=== PATIENT | male | born 1935 | race Caucasian/White ===

== ENCOUNTER → 2016-05-28 | Outpatient (CLI) | payer MEDICARE, OTHER ==
[~2016-05-28] MED LIST: AC325T PO; ALBU8CC IH; ASPI-345 PO; CARV6.25 PO; CEFD300C PO; ESCI10TA PO; LEVO25TA5 PO; MULT-1034 PO; NF-ESOM40C PO; NITR100C3 PO; OMEP40CA36 PO; PRED20TA PO; PRIM250T PO; SCR1T1 PO; SIMV20TA PO; SULF-228 PO; WARF5TAB6 PO; WARF6TAB PO
== END ==
LOC: LAB 09:00
PROVIDERS: ATTEND Family Medicine
DX: I48.91 Unspecified atrial fibrillation (principal)
CPT/HCPCS: 36415; 85610

== ENCOUNTER → 2016-06-12 | Outpatient (CLI) | payer MEDICARE, OTHER | LOC: RAD 11:41 | PROVIDERS: ATTEND Family Medicine | DX: R06.02 Shortness of breath (principal); Z95.1 Presence of aortocoronary bypass graft | CPT/HCPCS: 71020 ==

== ENCOUNTER 2016-08-05 16:29 | Emergency (ER) | payer MEDICARE, OTHER ==
[~2016-08-05] VITALS: Ht 198.1 cm; Wt 169.0 kg
[2016-08-05] MEDS ORDERED: BACITRACIN OINTMENT 0.9 GM PACKET TOP ONE (17:00)
[2016-08-05 17:30] LABS: BASOPHILS % (AUTO) 1 % (0-2); EOSINOPHILS # (AUTO) 0.1 10^3uL; EOSINOPHILS % (AUTO) 2 % (0-4); LYMPHOCYTES # (AUTO) 0.8 X10^3; MEAN CORPUSCULAR HEMOGLOBIN 30.6 PG (26.0-34.0); MEAN CORPUSCULAR HGB CONC 32.8 g/dL (31.0-37.0); MEAN CORPUSCULAR VOLUME 93 FL (80-100); MEAN PLATELET VOLUME 10.1 FL (6.0-9.5); MONOCYTES # (AUTO) 0.5 X10^3; MONOCYTES % (AUTO) 12 % (3-11); NEUTROPHILS # (AUTO) 2.8 X10^3; NEUTROPHILS % (AUTO) 66 % (51-67); PLATELET COUNT 133 10^3uL (150-450)
[2016-08-05 17:39] LABS: ALBUMIN 3.6 g/dL (3.4-5.0); ANION GAP 11.5 MEQ/L (3-15); CALCULATED IONIZED CALCIUM 3.9 mg/dL (3.8-4.6); TOTAL PROTEIN 6.5 g/dL (6.4-8.5)
--- NOTE | 2016-08-05 17:59 | NUR ---
PT DENIES URGE TO VOID. STATES HE JUST FELL & HE DOESN'T FEEL HE HAS A UTI THAT MIGHT HAVE CAUSED HIS FALL. "I JUST TRIPPED". CL
--- NOTE | 2016-08-05 18:27 | NUR ---
PT CONT TO DENY URGE TO VOID STATING HE SIMPLY TRIPPED & DOES NOT NEED A UA. DR LAWTON NOTIFIED & ENTERS PT RM TO DISCUSS CARE W/PT. PT STABLE ON FEET WHEN HE STANDS, DENIES ANY DIZZINESS OR VISUAL PROBLEMS DECLINING A WHEELCHAIR FOR D/C. CL
[2016-08-05 20:30] VITALS: BP 137/89
== END 2016-08-05 18:47 | disposition home or self-care (01) ==
LOC: ED 16:31
DX: S01.01XA Laceration without foreign body of scalp, initial encounter (principal); S00.01XA Abrasion of scalp, initial encounter; S80.212A Abrasion, left knee, initial encounter; S80.211A Abrasion, right knee, initial encounter; S50.311A Abrasion of right elbow, initial encounter; S63.612A Unspecified sprain of right middle finger, initial encounter; W01.198A Fall on same level from slipping, tripping and stumbling with subsequent striking against other object, initial encounter; Y92.009 Unspecified place in unspecified non-institutional (private) residence as the place of occurrence of the external cause; Z79.01 Long term (current) use of anticoagulants
CPT/HCPCS: 36415; 70450; 73140; 80053; 85025; 85610; 85730; 93005; 99283; A9270; 93010; 99285

== ENCOUNTER → 2016-08-14 | Outpatient (CLI) | payer MEDICARE, OTHER ==
--- NOTE | 2016-08-14 13:58 | Diagnostic Imaging Report ---
INDICATION: Pneumonia. COMPARISON: 06/12/2016. FINDINGS: The cardiomegaly is unchanged in magnitude and configuration. The pulmonary venous structures are not grossly over dilated on followup. There is some basilar opacity partially obscuring the left hemidiaphragm posteriorly on the lateral view. Pneumonia is suspected. IMPRESSION: Cardiomegaly is redemonstrated. No overt failure pattern. Left lower lobe infiltrate, best seen on the lateral view posteriorly, suggests pneumonia. Dictated by: Dictated on workstation # [id number]
== END ==
LOC: RAD 11:24
PROVIDERS: ATTEND Family Medicine
DX: J45.20 Mild intermittent asthma, uncomplicated (principal); R06.02 Shortness of breath; I51.7 Cardiomegaly
CPT/HCPCS: 71020

== ENCOUNTER 2016-08-17 12:37 | Emergency (ER) | payer MEDICARE, OTHER ==
[~2016-08-17] VITALS: Ht 198.1 cm; Wt 372.0 kg
--- OUTSIDE RECORDS SUMMARY | 2016-08-17 12:43 | XMS REPORT | Continuity of Care Document ---
Author Author [facility] Address Unknown Phone Unavailable Care Team Providers Care Stem Setter Name Role Phone Yonathan Herring MD PCP [phone] Insurance Providers Payer Name Policy Number Subscriber Name Relationship Medicare A And B [id number] Beny Peterson 18 Self / Same As Patient Other1 [id number] Danette Peterson 18 Self / Same As Patient Advance Directives Directive Response Recorded Date/Time Advanced Directives Yes 08/05/16 4:35pm Type Durable Power of Bar Tacker Sewing Machine 08/05/16 4:35pm Type Durable Power of Bar Tacker Sewing Machine 08/05/16 4:35pm Other will ask family 08/05/16 4:35pm Chief Complaint and Reason for Visit Chief Complaint Laceration Reason for Visit Skin tear Sprain of middle finger Problems Active Problems Medical Problem Onset Date Status Abdominal pain 03/16/2012 Acute Asthma Unknown Acute Atrial fibrillation with rapid ventricular response Unknown Acute CAP (community acquired pneumonia) Unknown Acute COPD exacerbation Unknown Acute Injury of lower extremity Unknown Acute Pneumonia ~05/04/2016 Acute Skin tear 08/05/2016 Acute Sprain of middle finger 08/05/2016 Acute Medications Current Home Medications Medication Dose Units Route Directions Days/Qty Instructions Start Date Carvedilol 6.25 Mg 6.25 Mg ORAL Twice A Day With Meals 03/18/12 Simvastatin 20 Mg 20 Mg ORAL Bedtime 03/18/12 Warfarin Sodium 5 Mg 5 Mg ORAL Bedtime 11/05/15 Sucralfate (Carafate) 1 Gm 1 Gm ORAL Three Times A Day 11/05/15 Primidone 250 Mg 250 Mg ORAL Twice A Day 11/05/15 Omeprazole 40 Mg 40 Mg ORAL Daily 11/05/15 Levothyroxine Sodium 25 Mcg 25 Mcg ORAL Daily 11/05/15 Escitalopram Oxalate 10 Mg 10 Mg ORAL Daily 11/05/15 Mu-Vits-Min Th/Lycopene/Lutein 1 Each 1 Tab ORAL Daily 05/05/16 Albuterol Sulfate 90 Mcg/1 Puff 2 Puff RESPIRATORY (INHALATION) Every 4HRS as needed for Shortness Of Breath 1 05/07/16 Acetaminophen (Tylenol) 325 Mg 650 Mg ORAL Every 6 Hours as needed for Pain 0 05/07/16 Past Home Medications Medication Directions Ordered Status Aspirin 81 Mg Tablet, 81 Mg Oral Daily 03/18/12 Discontinued Esomeprazole Magnesium 40 Mg Capsule.dr, 40 Mg Oral As Directed 03/18/12 Discontinued Warfarin Sodium 6 Mg Tablet, 6 Mg Oral As Directed 03/18/12 Discontinued Trimethoprim/Sulfamethoxazole 1 Ea Tablet, 1 Ea Oral Twice A Day 03/22/12 Discontinued Nitrofurantoin/Nitrofuran Mac 100 Mg Capsule, 100 Mg Oral Twice A Day Discontinued Cefdinir (Omnicef) 300 Mg Capsule, 300 Mg Oral Twice A Day 05/07/16 Discontinued Prednisone 20 Mg Tablet, 60 Mg Oral Daily 05/07/16 Discontinued Social History Social History Problem Response Recorded Date/Time Onset Date Status Exposure to occupational hazards No 05/04/2016 6:22pm Query Response Start Date Stop Date Smoking Status Former smoker Hospital Discharge Instructions No hospital discharge instructions. Plan of Care Discharge Date 08/05/16 6:47pm Disposition 01 HOME OR SELF-CARE Condition at Discharge Stable Instructions/Education Provided Wound Care (DC) Finger Sprain (DC) Prescriptions See Medication Section Referrals Yonathan Herring MD - Additional Instructions/Education ED [facility]N if any worse. Follow up with your doctor as needed. Some of your test results may not be complete prior to your leaving the Emergency Department. The Emergency Department is not authorized to give test results over the phone. Please contact the doctor's office listed in this packet of information for your final results. Follow up with your primary care physician or return to the Emergency Department for worsening or worrisome symptoms. * Emergency Department phone number: [phone], x [phone]* MEDICAL RECORD If you need copies of your X-rays, call [phone]. If you need copies of your medical record, including lab results, a signed authorization for release of records will be required. A telephone call for release of Health Information is not allowed. BILLING Billing can sometimes be confusing and frustrating. To help avoid confusion in the future, please take a moment to acquaint yourself with the billing parties for services. SERVICE BILLING DEMO[employer]AT Emergency Room Services [facility] Physician Services [facility] X-rays [facility] Patients will receive bills for services from the appropriate provider. If you have any questions about your [facility] bill, our staff will be happy to assist you. Please call [phone], and ask for the billing department. THANK YOU for choosing [facility] as your emergency care provider! Care Plan and Goals ~~Discharge Care Plan~~ Problem: Contusion, pain to affected area, fall. Goal: Decreased contusion and pain to affected area. Instructions: Apply ice to area for 15-20 minutes every 3-4 hours. Elevate extremity above the level of the heart, if applicable. Splint area with pillow or blanket to any chest/abdomen injuries. Use incentive spirometry as directed. Take at least 10 deep breaths per hour. Take medication(s) as directed. Follow up with regular physician or specialist as directed. Exercise as tolerated or directed by physician. Functional Status No functional status results. Allergies, Adverse Reactions, Alerts No known allergies. Immunizations Name Given Type Status Date Influenza Vaccine Received if Current 03/02/12 Historical Historical Vital Signs Acute Vital Signs Vital Response Date/Time Temperature (Fahrenheit) 97.6 08/05/2016 4:35pm Pulse 71 bpm 08/05/2016 8:30pm Respirations 18 08/05/2016 8:30pm Height 6 ft 6 in Weight 372 lb Body Mass Index 43.0 kg/m^2 Results Laboratory Results Test Name Result Units Flags Reference Collection Date/Time Result Date/ Time Comments White Blood Count 4.20 10^3uL 4.0-11.0 08/05/2016 5:24pm 08/05/2016 5: 31pm Red Blood Count 4.09 10^6uL L 4.50-5.50 08/05/2016 5:08/05/2016 5: 31pm Hemoglobin 12.5 g/dL L 13.5-17.0 08/05/2016 5:08/05/2016 5:31pm Hematocrit 38.10 % L 39.00-50.00 08/05/2016 5:08/05/2016 5:31pm Mean Corpuscular Volume 93 FL 80-100 08/05/2016 5:08/05/2016 5: 31pm Mean Corpuscular Hemoglobin 30.6 PG 26.0-34.0 08/05/2016 5:2016 5:31pm Mean Corpuscular Hemoglobin Concent 32.8 g/dL 31.0-37.0 08/05/2016 5: 08/05/2016 5:31pm Red Cell Distribution Width 16.0 % H 11.8-15.6 08/05/2016 5:2016 5:31pm Platelet Count 133 10^3uL L 150-450 08/05/2016 5:08/05/2016 5:31pm Mean Platelet Volume 10.1 FL H 6.0-9.5 08/05/2016 5:08/05/2016 5: 31pm Neutrophils (%) (Auto) 66 % 51-67 08/05/2016 5:08/05/2016 5:31pm Lymphocytes (%) (Auto) 20 % 20-46 08/05/2016 5:08/05/2016 5:31pm Monocytes (%) (Auto) 12 % H 3-11 08/05/2016 5:08/05/2016 5:31pm Eosinophils (%) (Auto) 2 % 0-4 08/05/2016 5:08/05/2016 5:31pm Basophils (%) (Auto) 1 % 0-2 08/05/2016 5:24pm 08/05/2016 5:31pm Neutrophils # (Auto) 2.8 X10^3 08/05/2016 5:24pm 08/05/2016 5:31pm Lymphocytes # (Auto) 0.8 X10^3 08/05/2016 5:24pm 08/05/2016 5:31pm Monocytes # (Auto) 0.5 X10^3 08/05/2016 5:24pm 08/05/2016 5:31pm Eosinophils # (Auto) 0.1 10^3uL 08/05/2016 5:24pm 08/05/2016 5:31pm Basophils # (Auto) 0.0 10^3uL 08/05/2016 5:24pm 08/05/2016 5:31pm Prothrombin Time 29.4 SEC H 10.0-12.5 08/05/2016 5:24pm 08/05/2016 5: 44pm Prothromb Time International Ratio 2.7 H 0.8-1.4 08/05/2016 5:24pm 5:44pm Activated Partial Thromboplast Time 43.0 SEC H 26.3-36.8 08/05/2016 5: 24pm 08/05/2016 5:44pm Sodium Level 140 mmol/L 135-150 08/05/2016 5:24pm 08/05/2016 5:41pm Potassium Level 4.3 mmol/L 3.5-5.1 08/05/2016 5:24pm 08/05/2016 5:41pm Chloride Level 109 mmol/L H 98-108 08/05/2016 5:24pm 08/05/2016 5:41pm Carbon Dioxide Level 24 mmol/L 22-29 08/05/2016 5:24pm 08/05/2016 5: 41pm Anion Gap 11.5 MEQ/L 3-15 08/05/2016 5:24pm 08/05/2016 5:41pm Blood Urea Nitrogen 19 mg/dL H 7-18 08/05/2016 5:24pm 08/05/2016 5:41pm Creatinine 0.98 mg/dL 0.8-1.5 08/05/2016 5:24pm 08/05/2016 5:41pm BUN/Creatinine Ratio 19 10-20 08/05/2016 5:24pm 08/05/2016 5:41pm Estimat Glomerular Filtration Rate 89.5 08/05/2016 5:24pm 2016 5:41pm Estimated GFR (Non- 74.0 08/05/2016 5:24pm 2016 5:41pm Glucose Level 87 mg/dL 70-110 08/05/2016 5:24pm 08/05/2016 5:41pm Calculated Osmolality 273 mosm/L L 280-300 08/05/2016 5:24pm 08/05/2016 5:41pm Calcium Level 8.5 mg/dL L 8.8-10.8 08/05/2016 5:24pm 08/05/2016 5:41pm Calcium/Ionized Calcium Ratio 3.9 mg/dL 3.8-4.6 08/05/2016 5:24pm 08/05 5:41pm Total Bilirubin 0.7 mg/dL 0.1-1.0 08/05/2016 5:24pm 08/05/2016 5:41pm Alkaline Phosphatase 112 U/L 38-126 08/05/2016 5:24pm 08/05/2016 5: 41pm Aspartate Amino Transf (AST/SGOT) 21 U/L 15-37 08/05/2016 5:24pm 2016 5:41pm Alanine Aminotransferase (ALT/SGPT) 26 U/L L 30-65 08/05/2016 5:24pm 5:41pm Total Protein 6.5 g/dL 6.4-8.5 08/05/2016 5:24pm 08/05/2016 5:41pm Albumin 3.6 g/dL # 3.4-5.0 08/05/2016 5:24pm 08/05/2016 5:41pm Albumin/Globulin Ratio 1.241 1.1-1.8 08/05/2016 5:24pm 08/05/2016 5: 41pm Procedures No known history of procedures. Encounters Encounter Location Arrival/Admit Date Discharge/Depart Date Attending Provider Departed Emergency Room [facility] 08/05/16 4:31pm 08/05/16 6:47pm TASIA LAWTON MD Recent Diagnosis
[2016-08-17 13:04] VITALS: BP 166/103
[2016-08-17 13:27] LABS: MEAN CORPUSCULAR HGB CONC 33.1 g/dL (31.0-37.0); MEAN CORPUSCULAR VOLUME 94 FL (80-100); MEAN PLATELET VOLUME 10.3 FL (6.0-9.5); PLATELET COUNT 125 10^3uL (150-450)
[2016-08-17 13:40] LABS: BAND NEUTROPHILS % 0 % (0-6); EOSINOPHILS % 1 % (0-4); LYMPHOCYTES # 0.4 #; MONOCYTES # 0.1 #; MONOCYTES % 2 % (3-11); RBC MORPH NORMAL (NORMAL); SEGMENTED NEUTROPHILS % 88 % (51-67); TOTAL CELLS COUNTED 100
[2016-08-17 13:53] LABS: ALBUMIN 3.8 g/dL (3.4-5.0); ANION GAP 16.5 MEQ/L (3-15); CALCULATED IONIZED CALCIUM 4.1 mg/dL (3.8-4.6); TOTAL PROTEIN 6.5 g/dL (6.4-8.5)
[2016-08-17] MEDS ORDERED: ALBUTEROL 0.083% NEB SOLUTION 2.5 MG/3 ML VIAL INH ONE (14:20)
[2016-08-17] MEDS ORDERED: FUROSEMIDE 40 MG/4 ML (LASIX) VIAL IV ONE (15:10)
--- NOTE | 2016-08-17 15:49 | NUR ---
dr fowler called by er physician
--- NOTE | 2016-08-17 18:16 | Diagnostic Imaging Report ---
INDICATION: Pneumonia. COMPARISON: August 14, 2016 TECHNIQUE: Frontal and lateral radiographs of the chest dated August 17, 2016. FINDINGS: Postsurgical changes of a CABG. The cardiac silhouette is enlarged, though stable. Pulmonary vasculature is unchanged. Interval improvement in previously noted left lower lobe opacities. No new focal pulmonary opacity. No significant pleural effusion. No pneumothorax. Scattered osseous degenerative changes without acute osseous abnormality. IMPRESSION: Stable cardiomegaly without overt congestive heart failure. Improving though not completely resolved left lower lobe opacities, suggestive of atelectasis or improving pneumonia. Dictated by: Dictated on workstation # [id number]
== END 2016-08-17 15:59 | disposition home or self-care (01) ==
LOC: ED 12:39
DX: J12.3 Human metapneumovirus pneumonia (principal); I11.0 Hypertensive heart disease with heart failure; I50.9 Heart failure, unspecified
CPT/HCPCS: 36415; 71020; 80053; 83605; 83880; 85025; 86140; 87486; 87581; 87633; 87798; 94640; 96374; 99284; J1940; J7613; 99283

== ENCOUNTER 2016-09-27 10:59 | Emergency (ER) | payer MEDICARE, OTHER ==
[~2016-09-27] VITALS: Ht 198.1 cm; Wt 182.4 kg
[2016-09-27] MEDS ORDERED: ALBUTEROL 0.083% NEB SOLUTION 2.5 MG/3 ML VIAL INH ONE (11:15)
[2016-09-27] MEDS ORDERED: FURO20TA4 PO (11:27)
[2016-09-27 11:45] LABS: BASOPHILS % (AUTO) 0 % (0-2); EOSINOPHILS % (AUTO) 1 % (0-4); LYMPHOCYTES # (AUTO) 0.5 X10^3; MEAN CORPUSCULAR HEMOGLOBIN 30.3 PG (26.0-34.0); MEAN CORPUSCULAR VOLUME 95 FL (80-100); MEAN PLATELET VOLUME 10.8 FL (6.0-9.5); MONOCYTES # (AUTO) 0.6 X10^3; MONOCYTES % (AUTO) 12 % (3-11); NEUTROPHILS # (AUTO) 3.9 X10^3; NEUTROPHILS % (AUTO) 77 % (51-67); PLATELET COUNT 114 10^3uL (150-450); WHITE BLOOD COUNT 5.01 10^3uL (4.0-11.0)
[2016-09-27 12:22] LABS: ALBUMIN 3.6 g/dL (3.4-5.0); ALKALINE PHOSPHATASE 101 U/L (38-126); BUN/CREATININE RATIO 20 (10-20); CALCULATED IONIZED CALCIUM 3.9 mg/dL (3.8-4.6); CREATINE KINASE 24 U/L (55-170); TOTAL PROTEIN 6.5 g/dL (6.4-8.5)
[2016-09-27 12:25] LABS: BILIRUBIN,URINE Negative (Negative); CLARITY,URINE Clear; COLOR,URINE Yellow; GLUCOSE, URINE (UA) Negative (Negative); LEUKOCYTE ESTERASE ,URINE Negative (Negative); UROBILINOGEN,URINE 0.2 mg/dL (0.2-1.0)
[2016-09-27 12:34] LABS: AMPHETAMINE SCREEN, URINE Negative (Negative); CANNABINOID SCREEN, URINE Negative (Negative); METHAMPHETAMINE SCREEN URINE S NEGATIVE (NEGATIVE); OPIATE SCREEN URINE Negative (Negative); PROPOXYPHENE STAT NEGATIVE (NEGATIVE)
--- NOTE | 2016-09-27 12:34 | Diagnostic Imaging Report ---
EXAMINATION: CHEST (PA AND LATERAL) CLINICAL INDICATION: 80-year-old male, shortness of breath. COMPARISON: August 17, 2016. FINDINGS: There are median sternotomy wires. Stable overall appearance of the cardio mediastinal silhouette. There is no identified pneumothorax. There is no pleural effusion. There is elevation of the right hemidiaphragm. There are streaky opacities in the medial aspect of the right lung base. There are multilevel flowing osteophytes of the thoracic spine without pronounced disc height loss most compatible with diffuse idiopathic skeletal hyperostosis. IMPRESSION: 1. Nonspecific streaky opacities in the right medial lung base which may relate to infiltrate and/or atelectasis. 2. Elevation of the right hemidiaphragm. Dictated by: Dictated on workstation # [id number]
[2016-09-27] MEDS ORDERED: FUROSEMIDE 40 MG/4 ML (LASIX) VIAL IV ONE (12:50)
[2016-09-27] MEDS ORDERED: POTA10CA43 PO (13:01)
[2016-09-27 13:35] VITALS: BP 127/79
== END 2016-09-27 13:39 | disposition home or self-care (01) ==
LOC: ED 11:04
DX: I50.33 Acute on chronic diastolic (congestive) heart failure (principal); J45.909 Unspecified asthma, uncomplicated; Z87.891 Personal history of nicotine dependence; Z79.01 Long term (current) use of anticoagulants; Z79.899 Other long term (current) drug therapy
CPT/HCPCS: 36415; 71020; 80053; 80307; 81003; 82550; 82553; 82803; 83605; 83880; 84443; 84484; 85025; 85379; 85610; 86140; 93005; 94640; 96374; 99284; G0480; J1940; J7613; 80320; 93010; 99285